=== PATIENT | male | born 1935 | race Caucasian/White ===

== ENCOUNTER 2024-04-10 12:26 | Outpatient (AMB) | payer MEDICARE, BC, SELFPAY ==
--- NOTE | 2024-04-10 12:35 | A.OFFVIS_ITS ---
Vital Signs 04/10/24 12:53 Height 5 ft 8 in Weight 127 lb BMI 19.3 BP 120/70 Blood Pressure Location Lt brachial Position Sitting Pulse 67 Pulse Source Pulse Oximeter Pulse Oximetry (%) 98 Oxygen Delivery Method Room Air Intake Visit Reasons: ENP: Parkinson - Confirmed Intake Note: Patient presents for Parkinson's. Having problems with motor skill, having problems with balance, difficulty dressing and trouble staying at sleep. During the day when I'm tired and feeling fatigue I would take a nap but when I wake up I feel worst, light headed, vulnerable and regret taking nap. Allergies amoxicillin Allergy (Mild, Verified 04/10/24 13:15) Rash gabapentin Allergy (Verified 04/10/24 13:15) Agitated HPI Comments Details: 88y/o Right handed male comes for further management of Parkinsons disease. He was diagnosed with parkinsons disease about 2 years ago . His initial symptoms were shuffling gait and brdaykinesia. He denies tremors. His handwriting is worse and cannot write anymore Voice - softer and has some swallowing issues. No drooling. He has mild slowing with eating showering and dressing. No difficulty changing positions in bed. he denies vivid dreams but has frequent arousals He has chronic constipation No recent falls. he uses a cane to walk . he has some mild memory issues He worries a lot but no depression or anxiety. He has some dizziness when he get up He exercises regularly He drinks 1 beer with dinner every night [facility] Medical History Mild cognitive impairment Melanoma Pericarditis Prostate CA Hyperlipidemia HTN (hypertension) Parkinsonism Surgical History History of surgical removal of pilonidal cyst Family History Mother Alzheimers disease Father Myocardial infarction complications Paternal Grandfather Parkinson's disease Physical Exam Vital Signs: Last Vital Signs Pulse 67 04/10/24 12:53 BP 120/70 04/10/24 12:53 Pulse Ox 98 04/10/24 12:53 Oxygen Delivery Method Room Air 04/10/24 12:53 BMI result Body Mass Index 19.3 Const General: cooperative, healthy appearing and comfortable Nutritional Appearance: thin Orientation/consciousness: patient oriented x3 Eyes Pupils: Equal, round and reactive pupils present Neuro Other: Mild decreased facial expression and blink Hypophonia No tremors No cog wheel rigidty FFm and foot taps mildly decreased GAit- stooped , slow General: patient oriented x3, tone normal, moves all extremities and no focal motor deficits Cranial nerves: Yes Facial sensation intact/muscles of mastication intact, Yes Equal, round and reactive pupils present, Yes Bilaterally intact EOM present, Yes Nystagmus not present, Yes Normal facial strength present, Yes Midline tongue present, Yes Symmetric palate elevation present and Yes Ability to bilaterally elevate shoulders present Cognition (Neuro): normal cognition Motor exam (neuro): 5/5 motor strength present throughout and Normal motor muscle tone present throughout Deep tendon reflexes (DTR's): Right triceps reflex intensity grade: 1+, Left triceps reflex intensity grade: 1+, Rt Biceps (C5, C6): 1+, Left biceps reflex intensity grade: 1+, Right brachioradialis reflex intensity grade: 1+, Left brachioradialis reflex intensity grade: 1+, Right patellar reflex intensity grade: 1+ and Left patellar reflex intensity grade: 1+ Coordination: [id number] test normal Psych Appearance: grossly normal Results Reviewed Results Reviewed: MRI Brain 12/10 Moderate chronic microvacsular disease Assessment & Plan Assessment & Plan (1) Parkinsonism: Code(s): G20.C - Parkinsonism, unspecified Category: Medical (2) Mild cognitive impairment: Code(s): G31.84 - Mild cognitive impairment of uncertain or unknown etiology Category: Medical Plan I suggested he continue carbidopa/levodopa 25/100 tid Continue exercises will consider PT referral Fall prevention discussed Increase fluid intake. He is on trazadone 100mg qhs for sleep - will consider more detailed sleep evaluation during his next visit Coding Level of Care Code New Pt Level 4 (80416) Diagnoses Parkinsonism G20.C Mild cognitive impairment G31.84
[2024-04-10 12:53] VITALS: BP 120/70; PULSE 67; O2SAT 98; BMI 19.3
== END 2024-04-10 13:32 | disposition home or self-care (01) ==
PROVIDERS: PCP Family Medicine; Visit Provider Psychiatry & Neurology Neurology
DX: G20.C Parkinsonism, unspecified (principal); G31.84 Mild cognitive impairment of uncertain or unknown etiology
CPT/HCPCS: 99204

== ENCOUNTER → 2024-04-10 12:26 | Outpatient (BNVA) | payer MEDICARE, BC, SELFPAY | PROVIDERS: PCP Family Medicine; Visit Provider Psychiatry & Neurology Neurology | DX: G20.C Parkinsonism, unspecified (principal); G31.84 Mild cognitive impairment of uncertain or unknown etiology | CPT/HCPCS: 99202 ==

== ENCOUNTER 2024-10-30 07:30 | Outpatient (AMB) | payer MEDICARE, BC, SELFPAY ==
[2024-10-30 07:47] VITALS: BMI 18.8
--- NOTE | 2024-10-30 07:47 | MHC.OFFVIS ---
Vital Signs 10/30/24 07:47 Height 5 ft 8 in Weight 123 lb 6 oz BMI 18.8 Intake Visit Reasons: follow up Parkinson Intake Note: Patient presents for parfkinsons Allergies amoxicillin Allergy (Mild, Verified 10/30/24 07:54) Rash gabapentin Allergy (Verified 10/30/24 07:54) Agitated Medication List - Last Reconciled 10/30/24 by Svetlana Suresh MD carbidopa-levodopa 25-100 mg 2 tabs PO TID mirtazapine 7.5 mg PO BEDTIME polyethylene glycol 3350 17 grams PO DAILY PRN psyllium husk (aspartame) 3.4 gram/5.8 gram ea PO HPI Comments Details: 89y/o Right handed male comes for follow up of Parkinsons disease.He moved to a different enhanced independent Living 3 weeks ago and he feels disoriented due to change in his routine. He had some issues with preparing his meals and the new place meals are provided. He has some trouble with comprehending especially time. He was diagnosed with parkinsons disease about 3 years ago . His initial symptoms were shuffling gait and bradykinesia. He denies tremors. His handwriting is worse and cannot write anymore Voice - softer and has some swallowing issues. No drooling. He has moderate slowing with eating showering and dressing.He feels off balance in shower . No difficulty changing positions in bed. he denies vivid dreams but has frequent arousals He has chronic constipation No recent falls. he uses a cane to walk . He did a bones and balance class and planning to do the exercises. he has some mild memory issues- worsened. He worries a lot but no depression or anxiety. He has some dizziness when he get up He drinks 1 beer with dinner- says he does not drink everyday.He eats ice cream He used to be on trazadone 100mg qhs but he says he is not taking it anymore. He is on magnesium now. COUNTS INCLUDE 234 BEDS AT THE [facility] Medical History Mild cognitive impairment Melanoma Pericarditis Prostate CA Hyperlipidemia HTN (hypertension) Parkinsonism Surgical History History of surgical removal of pilonidal cyst Family History Mother Alzheimers disease Father Myocardial infarction complications Paternal Grandfather Parkinson's disease Physical Exam Vital Signs: BMI result Body Mass Index 18.8 Const General: cooperative, healthy appearing and comfortable Nutritional Appearance: thin Orientation/consciousness: patient oriented x3 Eyes Pupils: Equal, round and reactive pupils present Neuro Other: Mild decreased facial expression and blink Hypophonia No tremors No cog wheel rigidty FFm and foot taps mildly decreased GAit- stooped , slow General: patient oriented x3, tone normal, moves all extremities and no focal motor deficits Cranial nerves: Yes Facial sensation intact/muscles of mastication intact, Yes Equal, round and reactive pupils present, Yes Bilaterally intact EOM present, Yes Nystagmus not present, Yes Normal facial strength present, Yes Midline tongue present, Yes Symmetric palate elevation present and Yes Ability to bilaterally elevate shoulders present Cognition (Neuro): normal cognition Motor exam (neuro): 5/5 motor strength present throughout and Normal motor muscle tone present throughout Coordination: [id number] test normal Psych Appearance: grossly normal Assessment & Plan Assessment & Plan (1) Parkinsonism: Code(s): G20.C - Parkinsonism, unspecified Category: Medical Qualifiers: Parkinsonism type: unspecified Qualified Code(s): G20.C - Parkinsonism, unspecified (2) Mild cognitive impairment: Code(s): G31.84 - Mild cognitive impairment of uncertain or unknown etiology Category: Medical Plan Increase carbidopa/levodopa - 2 tabs 25/100 tid Continue exercises will consider PT referral Fall prevention discussed Increase fluid intake. I will trial him on Mirtazepine 7.5mg qhs Orders: [facility]errals [facility] Referral G20.C - Parkinsonism, unspecified, G31.84 - Mild cognitive impairment of uncertain or unknown etiology Medications: New mirtazapine 7.5 mg PO BEDTIME 30 tabs 6RF Changed From carbidopa-levodopa 25-100 mg 1 tab PO TID To carbidopa-levodopa 25-100 mg 2 tabs PO TID 180 tabs 6RF Coding Level of Care Code Est Pt Level 4 (67373) Complex EM visit Add On G2211 Diagnoses Parkinsonism, unspecified Parkinsonism type G20.C Parkinsonism type: unspecified Mild cognitive impairment G31.84
== END 2024-10-30 08:34 | disposition home or self-care (01) ==
PROVIDERS: PCP Family Medicine; Visit Provider Psychiatry & Neurology Neurology
DX: G20.C Parkinsonism, unspecified (principal); G31.84 Mild cognitive impairment of uncertain or unknown etiology
CPT/HCPCS: 99214; G2211

== ENCOUNTER → 2024-10-30 07:30 | Outpatient (BNVA) | payer MEDICARE, BC, SELFPAY | PROVIDERS: PCP Family Medicine; Visit Provider Psychiatry & Neurology Neurology | DX: G20.C Parkinsonism, unspecified (principal); G31.84 Mild cognitive impairment of uncertain or unknown etiology | CPT/HCPCS: 99212 ==

== ENCOUNTER 2025-02-01 11:13 | Outpatient (AMB) | payer MEDICARE, BC, SELFPAY ==
--- NOTE | 2025-02-01 11:11 | A.OFFVIS_ITS ---
Intake Visit Reasons: follow up Parkinson Intake Note: patient presents for follow up new med trial mirtazapine and increase in carbidopa levodopa. patient requested to be discharge from home care PT see scanned note from [facility]. Allergies amoxicillin Allergy (Mild, Verified 02/01/25 11:12) Rash gabapentin Allergy (Verified 02/01/25 11:12) Agitated HPI Comments Details: 89y/o Right handed male calls for follow up of Parkinsons disease and word finding difficulty . He was unable to come in person due to weather. He is doing OK as per son . Patient feels his word finding difficulty has worsened and has some short term memory issues. He did not try mirtazapine ( PCP discontinued ) No falls. He moved to a different enhanced independent Living and is doing OK. He had some issues with preparing his meals and the new place meals are provided. He has some trouble with comprehending especially time. He was diagnosed with parkinsons disease about 4 years ago . His initial symptoms were shuffling gait and bradykinesia. He denies tremors. His handwriting is worse and cannot write anymore Voice - softer and has some swallowing issues. No drooling. He has moderate slowing with eating showering and dressing.He feels off balance in shower . No difficulty changing positions in bed. he denies vivid dreams but has frequent arousals He has chronic constipation No recent falls. he uses a cane to walk . He worries a lot but no depression or anxiety. He has some dizziness when he get up He drinks 1 beer with dinner- says he does not drink everyday.He eats ice cream [facility] Medical History Mild cognitive impairment Melanoma Pericarditis Prostate CA Hyperlipidemia HTN (hypertension) Parkinsonism Surgical History History of surgical removal of pilonidal cyst Family History Mother Alzheimers disease Father Myocardial infarction complications Paternal Grandfather Parkinson's disease Physical Exam Const Other: Speech- normal General: cooperative Orientation/consciousness: patient oriented x3 Neuro General: patient oriented x3 Telehealth Telehealth Telehealth Platform: Telephone Location of provider rendering services: practice address Location of patient: address on file Patient Identification confirmed using: Name, : Yes Telehealth method: voice only Patient verbally consented to treatment: Yes Patient verbally consented to billing insurance company: Yes Patient informed of any privacy concerns related to visit: Yes Minutes spent on Phone/Video with Pt.: 23 Assessment & Plan Assessment & Plan (1) Parkinsonism: Code(s): G20.C - Parkinsonism, unspecified Category: Medical Qualifiers: Parkinsonism type: unspecified Qualified Code(s): G20.C - Parkinsonism, unspecified (2) Mild cognitive impairment: Code(s): G31.84 - Mild cognitive impairment of uncertain or unknown etiology Category: Medical Plan Carbidopa/levodopa - 2 tabs 25/100 tid PCP referred him to PT Fall prevention discussed Increase fluid intake. Medications: Discontinued mirtazapine Discontinued Reason: Stopped on Transfer 7.5 mg PO BEDTIME 30 tabs 6RF Coding Level of Care Code Tele Est Pt Level 4 (28981) Diagnoses Parkinsonism, unspecified Parkinsonism type G20.C Parkinsonism type: unspecified Mild cognitive impairment G31.84 Time Spent (min) 23
== END 2025-02-01 12:00 | disposition home or self-care (01) ==
LOC: HO.HSMS 11:14
PROVIDERS: PCP Family Medicine; Visit Provider Psychiatry & Neurology Neurology
DX: G20.A1 Parkinson's disease without dyskinesia, without mention of fluctuations (principal); G31.84 Mild cognitive impairment of uncertain or unknown etiology
CPT/HCPCS: 99214

== ENCOUNTER → 2025-02-01 11:13 | Outpatient (BNVA) | payer MEDICARE, BC, SELFPAY | PROVIDERS: PCP Family Medicine; Visit Provider Psychiatry & Neurology Neurology | DX: G20.C Parkinsonism, unspecified (principal); G31.84 Mild cognitive impairment of uncertain or unknown etiology ==

== ENCOUNTER 2025-08-10 09:18 | Outpatient (AMB) | payer MEDICARE, BC, SELFPAY ==
--- NOTE | 2025-08-10 09:10 | MHC.OFFVIS ---
Intake Visit Reasons: f/u Parkinson # [phone] Intake Note: Patient presents for follow up Mild cognitive impairment and parkinson's. mirtazapine was d/c'd last visit. Community Fundraiser Required: No Accompanied by: Son - Rodolfo Michaels Allergies amoxicillin Allergy (Mild, Verified 08/10/25 09:13) Rash gabapentin Allergy (Verified 08/10/25 09:13) Agitated HPI Comments Details: 89y/o Right handed male calls for follow up of Parkinsons disease and word finding difficulty .He is in a rehab in [facility] after a stroke.He is doing OK . No change in parkinsons. Voice is weaker . He had a fall when he was walking in the grass- was disoriented the enxt AM , was taken to hospital and was told he had a stroke - mild weakness in left side of the body - [facility] .He was started on statin. Now he is using a walker . History from last visit - He was unable to come in person due to weather. He is doing OK as per son . Patient feels his word finding difficulty has worsened and has some short term memory issues. He did not try mirtazapine ( PCP discontinued ) No falls. He moved to a different enhanced independent Living and is doing OK. He had some issues with preparing his meals and the new place meals are provided. He has some trouble with comprehending especially time. He was diagnosed with parkinsons disease about 4 years ago . His initial symptoms were shuffling gait and bradykinesia. His handwriting is worse and cannot write anymore Voice - softer and has some swallowing issues. No drooling. He has moderate slowing with eating showering and dressing.He feels off balance in shower . No difficulty changing positions in bed. he denies vivid dreams but has frequent arousals He has chronic constipation No recent falls. he uses a cane to walk . He worries a lot but no depression or anxiety. He has some dizziness when he get up He drinks 1 beer with dinner- says he does not drink everyday.He eats ice cream [facility] Medical History Mild cognitive impairment Melanoma Pericarditis Prostate CA Hyperlipidemia HTN (hypertension) Parkinsonism Surgical History History of surgical removal of pilonidal cyst Family History Mother Alzheimers disease Father Myocardial infarction complications Paternal Grandfather Parkinson's disease Physical Exam Const Other: speech - normal General: cooperative Telehealth Telehealth Telehealth Platform: Telephone Location of provider rendering services: practice address Location of patient: address on file Patient Identification confirmed using: Name, : Yes Telehealth method: voice only Patient verbally consented to treatment: Yes Patient verbally consented to billing insurance company: Yes Patient informed of any privacy concerns related to visit: Yes Minutes spent on Phone/Video with Pt.: 16 Assessment & Plan Assessment & Plan (1) Parkinsonism: Code(s): G20.C - Parkinsonism, unspecified Category: Medical Qualifiers: Parkinsonism type: unspecified Qualified Code(s): G20.C - Parkinsonism, unspecified (2) Mild cognitive impairment: Code(s): G31.84 - Mild cognitive impairment of uncertain or unknown etiology Category: Medical Plan Continue Carbidopa/levodopa - 2 tabs tid Fall prevention discusse Coding Level of Care Code Tele Est Pt Level 4 (06958) Diagnoses Parkinsonism, unspecified Parkinsonism type G20.C Parkinsonism type: unspecified Mild cognitive impairment G31.84
== END 2025-08-10 10:52 | disposition home or self-care (01) ==
LOC: HO.HSMS 09:18
PROVIDERS: PCP Family Medicine; Visit Provider Psychiatry & Neurology Neurology
DX: G20.C Parkinsonism, unspecified (principal); G31.84 Mild cognitive impairment of uncertain or unknown etiology
CPT/HCPCS: 99214